=== PATIENT | female | born 2000 | race Caucasian/White ===

== ENCOUNTER 2021-09-07 23:30 | Emergency (ER) | payer OTHER ==
[~2021-09-07] VITALS: Ht 167.6 cm; Wt 104.3 kg
--- NOTE | 2021-09-07 23:48 | NUR ---
PT IN TENT TO A/W EVALUATION
[2021-09-07 23:51] VITALS: BP 128/73
--- NOTE | 2021-09-08 02:57 | NUR ---
DR. ORTIZ CALLED PT IN TENT AND OUTSIDE WITH NO ANSWER. PATIENT LEFT WITHOUT BEING SEEN BY DR. ORTIZ. NO FURTHER CARE PROVIDED FOR PATIENT.
== END 2021-09-08 02:57 | disposition left against medical advice (07) ==
LOC: MED 23:30
DX: O26.891 Other specified pregnancy related conditions, first trimester (principal); R50.9 Fever, unspecified; R05.9 Cough, unspecified; Z53.21 Procedure and treatment not carried out due to patient leaving prior to being seen by health care provider; Z3A.10 10 weeks gestation of pregnancy

== ENCOUNTER 2022-05-01 11:12 | Emergency (ER) | payer OTHER ==
[~2022-05-01] VITALS: Ht 167.6 cm; Wt 103.0 kg
[2022-05-01 11:21] VITALS: BP 119/66
--- NOTE | 2022-05-01 11:24 | NUR ---
AMBULATED TO BED 9
--- NOTE | 2022-05-01 11:38 | NUR ---
21 Y/O FEMALE BIB SELF C/O LEFT SIDED CHEST PAIN, SHOOTING AND INTERMITTENTX2 DAYS, DENIES RECENT INJURY/TRAUMA OR EXERCISE. REPORTS GIVING 5 WEEKS AGO, DENIES SOB, HEADACHE, N/V. DENIES PMH: DENIES NKA
--- NOTE | 2022-05-01 11:53 | NUR ---
DR ORTIZ AT BEDSIDE FOR EVAL
[2022-05-01] MEDS ORDERED: CIPR500T4 PO (12:03)
== END 2022-05-01 12:15 | disposition home or self-care (01) ==
LOC: MED 11:12
DX: R07.89 Other chest pain (principal); N39.0 Urinary tract infection, site not specified; F17.200 Nicotine dependence, unspecified, uncomplicated
CPT/HCPCS: 81002; 81025; 93005; 99283

== ENCOUNTER 2022-09-21 01:34 | Emergency (ER) | payer OTHER ==
[~2022-09-21] VITALS: Ht 167.6 cm; Wt 110.7 kg
[~2022-09-21 01:34] MED LIST: CIPR500T4 PO
[2022-09-21 01:41] VITALS: BP 129/58
--- NOTE | 2022-09-21 01:45 | NUR ---
PT AMBULATED TO BED #1
[2022-09-21 02:07] LABS: APPEARANCE,URINE CLOUDY (CLEAR); BILIRUBIN,URINE NEGATIVE (NEGATIVE); BLOOD, URINE 3+ (NEGATIVE); COLOR,URINE RED (YELLOW); LEUKOCYTE ESTERASE ,URINE 2+ (NEGATIVE); NITRITE, URINE POSITIVE (NEGATIVE); UGLUCOSE TRACE (NEGATIVE)
[2022-09-21 02:09] LABS: RBC,URINE TOO NUMEROUS TO COUN /HPF (0-5)
--- NOTE | 2022-09-21 02:10 | NUR ---
PT BIBS FROM HOME WITH C/O OF LOWER ABDOMINAL PAIN THAT STARTED TONIGHT. PATIENT STATES SHE WAS DOING DISHES WHEN SHE FELT A GUSH OF BLOOD COME OUT OF HER. SHE CANNOT SAY WETHER IT WAS VAGINAL OR URINARY. PATIENT HAD AN IN JULY. [facility] DENIES
[2022-09-21] MEDS ORDERED: metroNIDAZOLE 500 MG TAB PO ONE (02:40)
[2022-09-21] MEDS ORDERED: NITROFURANTOIN 100 MG CAP PO ONE (02:40)
[2022-09-21] MEDS ORDERED: NITR100C7 PO (02:58)
[2022-09-21] MEDS ORDERED: METR-435 PO (02:58)
[2022-09-21 03:03] VITALS: BP 129/58
--- NOTE | 2022-09-21 03:03 | NUR ---
Patient discharged with v/s stable. Written and verbal after care instructions given and explained. Patient alert, oriented and verbalized understanding of instructions. Ambulatory with steady gait. All questions addressed prior to discharge. ID band removed. Patient advised to follow up with PMD. Rx of metronidazole & nitrofurantoin given. Patient educated on indication of medication including possible reaction and side effects. Opportunity to ask questions provided and answered.
== END 2022-09-21 03:03 | disposition home or self-care (01) ==
LOC: MED 01:34
DX: N39.0 Urinary tract infection, site not specified (principal); N76.0 Acute vaginitis; B96.89 Other specified bacterial agents as the cause of diseases classified elsewhere; Z79.899 Other long term (current) drug therapy
CPT/HCPCS: 81001; 87086; 87210; 99283

== ENCOUNTER 2023-02-04 21:55 | Emergency (ER) | payer OTHER ==
[~2023-02-04] VITALS: Ht 167.6 cm; Wt 113.4 kg
[~2023-02-04 21:55] MED LIST changes: +METR-435 PO; +NITR100C7 PO
[2023-02-04 22:18] VITALS: BP 120/81
--- NOTE | 2023-02-04 22:51 | NUR ---
Patient discharged with v/s stable. Written and verbal after care instructions given and explained. Patient verbalized understanding. Ambulatory with steady gait. All questions addressed prior to discharge. Advised to follow up with PMD.
== END 2023-02-04 22:51 | disposition home or self-care (01) ==
LOC: MED 21:55
DX: M79.604 Pain in right leg (principal); M79.605 Pain in left leg; E66.01 Morbid (severe) obesity due to excess calories; Z68.41 Body mass index [BMI] 40.0-44.9, adult; Z79.899 Other long term (current) drug therapy
CPT/HCPCS: 99281